=== PATIENT | male | born 1965 | race Caucasian/White ===

== ENCOUNTER 2016-09-24 04:46 | Inpatient (IN) | payer OTHER ==
[~2016-09-24] VITALS: Ht 177.8 cm; Wt 121.1 kg
[~2016-09-24 04:46] MED LIST: ALDACTONE 25MG25 MG PO; AMARYL 2MG TABLE2 MG PO; BUMETANIDE2 MG PO; CATAPRES 0.1MG0.1 MG PO; CEFTIN500 MG PO; COZAAR100 MG PO; DILTIAZEM 24HR180 MG PO; IPRAT-ALBUT 0.5-3 ML INH; JANUVIA100 MG PO; LEVAQUIN500 MG PO; LEVEMIR100 UNIT/1 SC; MEDROL DOSEPAK 24 MG PO; NEURONTIN 400400 MG PO; PREDNISONE 10 M10 MG PO; PREDNISONE10 MG PO; SPIRIVA18 MCG INH; SUBOXONE 8 MG-1 EACH SL; SYMBICORT 16010.2 GM INH; TAMIFLU75 MG PO
[2016-09-24] MEDS ORDERED: MICROZIDE12.5 MG PO (08:03)
[2016-09-24] MEDS ORDERED: BUMEX 1MG TABLET1 MG PO (15:27)
[2016-09-25 03:47] LABS: HEMOGLOBIN 13.4 gm/dl (14.0-17.5); RED BLOOD COUNT 4.91 M/UL (4.20-5.50); WHITE BLOOD COUNT 15.6 K/UL (4.5-11.0)
[2016-09-25 04:09] LABS: BUN/CREATININE RATIO 24 (0-10)
[2016-09-26 04:13] LABS: HEMOGLOBIN 13.4 gm/dl (14.0-17.5); RED BLOOD COUNT 4.93 M/UL (4.20-5.50); WHITE BLOOD COUNT 16.2 K/UL (4.5-11.0)
[2016-09-26 04:29] LABS: BUN/CREATININE RATIO 30 (0-10)
[2016-09-26] MEDS ORDERED: PREDNISONE 10 M10 MG PO (20:27)
[2016-09-26] MEDS ORDERED: LEVAQUIN TAB 5500 MG PO (20:28)
== END 2016-09-26 21:03 | disposition home or self-care (01) | DRG 189 ==
LOC: PROG CARE 06:00 → MED SURG 4 09-25 10:07
PROVIDERS: Emergency Medicine; Hospitalist; ADMIT Internal Medicine
PROC: 5A09457 Assistance with Respiratory Ventilation, 24-96 Consecutive Hours, Continuous Positive Airway Pressure (ICD-10-PCS; principal; 2016-09-25)
DX: J96.22 Acute and chronic respiratory failure with hypercapnia (principal); J18.9 Pneumonia, unspecified organism; N17.9 Acute kidney failure, unspecified; J44.0 Chronic obstructive pulmonary disease with (acute) lower respiratory infection; E87.5 Hyperkalemia; T44.5X5A Adverse effect of predominantly beta-adrenoreceptor agonists, initial encounter; T46.1X5A Adverse effect of calcium-channel blockers, initial encounter; I12.9 Hypertensive chronic kidney disease with stage 1 through stage 4 chronic kidney disease, or unspecified chronic kidney disease; N18.1 Chronic kidney disease, stage 1; B19.20 Unspecified viral hepatitis C without hepatic coma; E11.65 Type 2 diabetes mellitus with hyperglycemia; T38.0X5A Adverse effect of glucocorticoids and synthetic analogues, initial encounter; B18.2 Chronic viral hepatitis C; G47.30 Sleep apnea, unspecified; E66.9 Obesity, unspecified; G89.4 Chronic pain syndrome; Z99.81 Dependence on supplemental oxygen; Z68.38 Body mass index [BMI] 38.0-38.9, adult; Z95.0 Presence of cardiac pacemaker; Z79.899 Other long term (current) drug therapy; Z83.3 Family history of diabetes mellitus; Z87.891 Personal history of nicotine dependence
CPT/HCPCS: 36415; 71020; 80048; 80053; 80307; 82962; 83735; 84132; 85027; 87040; 93005; 94640; 94660; 94664; J1650; J2280; J7040

== ENCOUNTER 2021-08-05 11:57 | Inpatient (IN) | payer OTHER ==
[~2021-08-05] VITALS: Ht 177.8 cm; Wt 110.0 kg
[~2021-08-05 11:57] MED LIST changes: +ASPIRIN EC81 MG PO; +BASAGLAR K100 UNIT/1 SQ; +BREO ELLIPTA 21 EACH INH; +BUMEX 1MG TABLET1 MG PO; +DALIRESP500 MCG PO; +DIAMOX 250 MG250 MG PO; +FUROSEMIDE40 MG PO; +INCRUSE ELLI62.5 MCG INH; +LEVAQUIN TAB 5500 MG PO; +LOPRESSOR 25 MG25 MG PO; +MICROZIDE12.5 MG PO; -NEURONTIN 400400 MG PO; +NORVASC10 MG PO; +POTASSIUM CHLO10 MEQ PO; +PROTONIX 40 MG40 M1 PO; +PROVENTIL HFA6.7 GM INH; -SUBOXONE 8 MG-1 EACH SL; +SYMBICORT 160-1 INHA INH; +SYNTHROID100 MCG PO; +VENTOLIN/PROVE0.5 ML INH
[2021-08-05] MEDS ORDERED: PROSCAR5 MG PO (16:06)
[2021-08-05] MEDS ORDERED: TOPROL XL25 MG PO (16:07)
[2021-08-05] MEDS ORDERED: LASIX20 MG PO (16:11)
[2021-08-05] MEDS ORDERED: ALDACTONE 25MG25 MG PO (16:12)
[2021-08-05] MEDS ORDERED: LANTUS SOL100 UNIT/1 SQ (16:16)
[2021-08-05] MEDS ORDERED: CARDIZEM CD180 MG PO (16:18)
[2021-08-05 16:21] LABS: HEMOGLOBIN 9.9 gm/dl (14.0-17.5); RED BLOOD COUNT 3.84 M/UL (4.20-5.50); WHITE BLOOD COUNT 13.8 K/UL (4.5-11.0)
[2021-08-05] MEDS ORDERED: NOVOLOG 10100 UNITS/ SC (16:26)
[2021-08-05] MEDS ORDERED: BREZTRI AEROS10.7 GM INH (16:32)
[2021-08-05] MEDS ORDERED: COZAAR 50MG TAB50 MG PO (16:33)
[2021-08-05] MEDS ORDERED: ROBAXIN 750 MG750 MG PO (16:34)
[2021-08-05 16:48] LABS: BUN/CREATININE RATIO 25 (0-10)
[2021-08-05] MEDS ORDERED: SUBOXONE 8 MG-1 EACH SL (20:49)
[2021-08-05] MEDS ORDERED: NEURONTIN800 MG PO (20:52)
[2021-08-06 05:25] LABS: HEMOGLOBIN 9.5 gm/dl (14.0-17.5); RED BLOOD COUNT 3.8 M/UL (4.20-5.50); WHITE BLOOD COUNT 10.6 K/UL (4.5-11.0)
[2021-08-06 06:00] LABS: BUN/CREATININE RATIO 32 (0-10)
[2021-08-07 05:39] LABS: HEMOGLOBIN 10.3 gm/dl (14.0-17.5); RED BLOOD COUNT 4.07 M/UL (4.20-5.50); WHITE BLOOD COUNT 8.8 K/UL (4.5-11.0)
[2021-08-07 06:13] LABS: BUN/CREATININE RATIO 34 (0-10)
[2021-08-08 05:23] LABS: RED BLOOD COUNT 3.96 M/UL (4.20-5.50); WHITE BLOOD COUNT 7.2 K/UL (4.5-11.0)
[2021-08-08 05:50] LABS: BUN/CREATININE RATIO 45 (0-10)
[2021-08-09 05:47] LABS: RED BLOOD COUNT 3.99 M/UL (4.20-5.50); WHITE BLOOD COUNT 7.9 K/UL (4.5-11.0)
[2021-08-09 06:12] LABS: BUN/CREATININE RATIO 67 (0-10)
[2021-08-10 05:09] LABS: HEMOGLOBIN 10.1 gm/dl (14.0-17.5); RED BLOOD COUNT 4.03 M/UL (4.20-5.50); WHITE BLOOD COUNT 8.9 K/UL (4.5-11.0)
[2021-08-10 05:28] LABS: BUN/CREATININE RATIO 69 (0-10)
[2021-08-11 06:10] LABS: HEMOGLOBIN 10.6 gm/dl (14.0-17.5); RED BLOOD COUNT 4.27 M/UL (4.20-5.50); WHITE BLOOD COUNT 9.9 K/UL (4.5-11.0)
[2021-08-11 06:48] LABS: BUN/CREATININE RATIO 68 (0-10)
[2021-08-12 06:07] LABS: BUN/CREATININE RATIO 76 (0-10)
[2021-08-12 08:29] LABS: HEMOGLOBIN 10.6 gm/dl (14.0-17.5); RED BLOOD COUNT 4.24 M/UL (4.20-5.50); WHITE BLOOD COUNT 11.7 K/UL (4.5-11.0)
[2021-08-13 05:18] LABS: HEMOGLOBIN 10.7 gm/dl (14.0-17.5); RED BLOOD COUNT 4.26 M/UL (4.20-5.50); WHITE BLOOD COUNT 11.8 K/UL (4.5-11.0)
[2021-08-13 05:52] LABS: BUN/CREATININE RATIO 61 (0-10)
[2021-08-14 04:49] LABS: HEMOGLOBIN 11.1 gm/dl (14.0-17.5); RED BLOOD COUNT 4.49 M/UL (4.20-5.50); WHITE BLOOD COUNT 12.8 K/UL (4.5-11.0)
[2021-08-14 05:38] LABS: BUN/CREATININE RATIO 88 (0-10)
[2021-08-15 05:23] LABS: HEMOGLOBIN 11.6 gm/dl (14.0-17.5); RED BLOOD COUNT 4.73 M/UL (4.20-5.50); WHITE BLOOD COUNT 13.1 K/UL (4.5-11.0)
[2021-08-15 05:39] LABS: BUN/CREATININE RATIO 81 (0-10)
[2021-08-16 05:29] LABS: HEMOGLOBIN 11.4 gm/dl (14.0-17.5); RED BLOOD COUNT 4.7 M/UL (4.20-5.50)
[2021-08-16 06:13] LABS: BUN/CREATININE RATIO 62 (0-10)
[2021-08-17 06:15] LABS: BUN/CREATININE RATIO 88 (0-10)
[2021-08-17] MEDS ORDERED: FENTANYL1 EAC1 TOP (12:37)
[2021-08-17] MEDS ORDERED: GABAPENTIN400 MG PO (12:37)
[2021-08-17] MEDS ORDERED: QUETIAPINE FUMA25 MG PO (12:37)
[2021-08-17] MEDS ORDERED: TYLENOL ELIXIR PEG (12:37)
[2021-08-17] MEDS ORDERED: LOPRESSOR 25 MG25 MG PO (12:37)
[2021-08-17] MEDS ORDERED: LANTUS INS100 UTS/M1 SC ×2 (12:37)
[2021-08-17] MEDS ORDERED: PROTONIX 40 MG40 MG PEG (12:37)
[2021-08-17] MEDS ORDERED: BUDESONIDE0.5 MG/2 M NEB (12:37)
[2021-08-17] MEDS ORDERED: KLONOPIN TAB 00.5 MG NG (12:37)
[2021-08-17] MEDS ORDERED: HUMALOG 10100 UNITS/ SC (12:37)
[2021-08-17] MEDS ORDERED: IPRAT-ALBUT 0.5-3 ML NEB (12:37)
[2021-08-17] MEDS ORDERED: ENOXAPARIN40 MG/0.4 SC (12:37)
--- NOTE | 2021-08-17 13:50 | NUR ---
ADVISED BY LEAD SYSTEMS DEVELOPER Mayda Corondao THAT WE ARE NOT ALLOWED TO SEND PATIENT'S BELONGINGS, THAT HE HAS LOCKED UP WITH SECURITY, WITH HIM TO THE [facility]. PERSONAL BELONGINGS ARE TO REMAIN IN OUR SAFE AT THIS FACILITY PER SECURITY AND HS.
== END 2021-08-17 16:00 | DRG 4 ==
LOC: CCU 14:50
PROVIDERS: Internal Medicine; Internal Medicine Pulmonary Disease; Physician Assistant; Surgery; ADMIT Internal Medicine
PROC: 5A1955Z Respiratory Ventilation, Greater than 96 Consecutive Hours (ICD-10-PCS; 2021-08-05)
PROC: 3E0336Z Introduction of Nutritional Substance into Peripheral Vein, Percutaneous Approach (ICD-10-PCS; 2021-08-05)
PROC: 3E03329 Introduction of Other Anti-infective into Peripheral Vein, Percutaneous Approach (ICD-10-PCS; 2021-08-05)
PROC: B24BZZZ Ultrasonography of Heart with Aorta (ICD-10-PCS; 2021-08-06)
PROC: 0B9J8ZX Drainage of Left Lower Lung Lobe, Via Natural or Artificial Opening Endoscopic, Diagnostic (ICD-10-PCS; 2021-08-10)
PROC: 0BCB8ZZ Extirpation of Matter from Left Lower Lobe Bronchus, Via Natural or Artificial Opening Endoscopic (ICD-10-PCS; 2021-08-10)
PROC: 02HV33Z Insertion of Infusion Device into Superior Vena Cava, Percutaneous Approach (ICD-10-PCS; 2021-08-10)
PROC: B548ZZA Ultrasonography of Superior Vena Cava, Guidance (ICD-10-PCS; 2021-08-10)
PROC: 0B110F4 Bypass Trachea to Cutaneous with Tracheostomy Device, Open Approach (ICD-10-PCS; 2021-08-11)
PROC: 0DH67UZ Insertion of Feeding Device into Stomach, Via Natural or Artificial Opening (ICD-10-PCS; principal; 2021-08-11 13:00)
PROC: 0B978ZZ Drainage of Left Main Bronchus, Via Natural or Artificial Opening Endoscopic (ICD-10-PCS; 2021-08-12)
PROC: 0BCB8ZZ Extirpation of Matter from Left Lower Lobe Bronchus, Via Natural or Artificial Opening Endoscopic (ICD-10-PCS; 2021-08-12)
DX: A41.9 Sepsis, unspecified organism (principal); J18.9 Pneumonia, unspecified organism; J96.21 Acute and chronic respiratory failure with hypoxia; J96.22 Acute and chronic respiratory failure with hypercapnia; J44.0 Chronic obstructive pulmonary disease with (acute) lower respiratory infection; J44.1 Chronic obstructive pulmonary disease with (acute) exacerbation; E66.2 Morbid (severe) obesity with alveolar hypoventilation; E87.3 Alkalosis; J98.11 Atelectasis; E87.2 Acidosis; F11.20 Opioid dependence, uncomplicated; J98.19 Other pulmonary collapse; I50.32 Chronic diastolic (congestive) heart failure; Z20.822 Contact with and (suspected) exposure to COVID-19; R65.20 Severe sepsis without septic shock; I11.0 Hypertensive heart disease with heart failure; B18.2 Chronic viral hepatitis C; E03.9 Hypothyroidism, unspecified; G89.29 Other chronic pain; N40.0 Benign prostatic hyperplasia without lower urinary tract symptoms; J98.2 Interstitial emphysema; F41.9 Anxiety disorder, unspecified; R53.81 Other malaise; E11.65 Type 2 diabetes mellitus with hyperglycemia; I49.5 Sick sinus syndrome; Z95.0 Presence of cardiac pacemaker; Z95.1 Presence of aortocoronary bypass graft; Z90.49 Acquired absence of other specified parts of digestive tract; Z98.890 Other specified postprocedural states; Z87.891 Personal history of nicotine dependence; Z79.82 Long term (current) use of aspirin; Z79.899 Other long term (current) drug therapy; E27.9 Disorder of adrenal gland, unspecified; Z68.34 Body mass index [BMI] 34.0-34.9, adult
CPT/HCPCS: ECHO; 36415; 36600; 71045; 71250; 71275; 80048; 80053; 80202; 81001; 82728; 82803; 82962; 83036; 83605; 83735; 83880; 84100; 84439; 84443; 85025; 85027; 85384; 85610; 85730; 86140; 87015; 87040; 87070; 87081; 87116; 87205; 87206; 87252; 93306; 94002; 94003; 94640; 94664; 94760; C1751; C1769; C9113; J0171; J0360; J0692; J1120; J1205; J1650; J1940; J2185; J2250; J2550; J2704; J2920; J3010; J3370; J7030; J7050; J7070; Q9967; U0002